=== PATIENT | female | born 1975 | race Caucasian/White ===

== ENCOUNTER 2019-07-13 08:01 | Day surgery (SDC) | payer MEDICAID ==
[~2019-07-13] VITALS: Ht 165.1 cm; Wt 94.3 kg
[2019-07-13 08:25] VITALS: BP 134/76
[2019-07-13] MEDS ORDERED: IBUP-2697 PO (08:38)
[2019-07-13] MEDS ORDERED: MULT-933 PO (08:38)
[2019-07-13] MEDS ORDERED: normal saline 1000ml 1,000 ML IV SCH (08:55)
[2019-07-13] MEDS ORDERED: heparin sodium, porcine/PF 100unit/ml 5ML syringe ICATH ONE (10:10)
[2019-07-13] MEDS ORDERED: LIDOcaine 1%/PF 5ML 10 MG/ML VIAL SQ ONE (10:10)
[2019-07-13] MEDS ORDERED: fentaNYL/PF 50MCG/1 ML 2ML syringe IV PRN (10:10)
[2019-07-13] MEDS ORDERED: midazolam 2 mg/2 ml injection IV PRN (10:10)
[2019-07-13] MEDS ORDERED: heparin sodium, porcine/PF 100unit/ml 5ML syringe ONE (10:17)
[2019-07-13] MEDS ORDERED: fentaNYL/PF 50MCG/1 ML 2ML syringe ONE (10:18)
[2019-07-13] MEDS ORDERED: midazolam 2 mg/2 ml injection ONE (10:18)
[2019-07-13] MEDS ORDERED: LIDOcaine 1%/PF 5ML 10 MG/ML VIAL ONE (10:18)
[2019-07-13 11:21] VITALS: BP 122/61
[2019-07-13 11:30] VITALS: BP 111/67
[2019-07-13 11:45] VITALS: BP 116/70
[2019-07-13 12:00] VITALS: BP 120/69
== END 2019-07-13 12:20 | disposition home or self-care (01) ==
LOC: SSTAY O 08:01
PROVIDERS: ATTEND Radiology Diagnostic Radiology
DX: C50.412 Malignant neoplasm of upper-outer quadrant of left female breast (principal); Z91.09 Other allergy status, other than to drugs and biological substances; Z79.899 Other long term (current) drug therapy; Z80.1 Family history of malignant neoplasm of trachea, bronchus and lung; Z80.3 Family history of malignant neoplasm of breast; Z80.0 Family history of malignant neoplasm of digestive organs
CPT/HCPCS: 36561; 76937; 77001; 99152; 99153; C1788; C1894; J1642; J2250; J3010; A6213; J7030

== ENCOUNTER 2020-01-18 06:59 | Day surgery (SDC) | payer MEDICAID ==
[~2020-01-18] VITALS: Ht 162.6 cm; Wt 104.1 kg
[~2020-01-18 06:59] MED LIST: IBUP-2697 PO; MULT-933 PO
[2020-01-18] MEDS ORDERED: normal saline 1000ml 1,000 ML IV PRN (07:30)
[2020-01-18] MEDS ORDERED: LIDOcaine 1%/PF 5ML 10 MG/ML VIAL ONE (08:31)
[2020-01-18 08:32] VITALS: BP 124/79
[2020-01-18] MEDS ORDERED: APIX5TAB3 PO (09:21)
[2020-01-18] MEDS ORDERED: ACET-812 PO (09:21)
[2020-01-18 09:29] VITALS: BP 117/70
== END 2020-01-18 09:40 | disposition home or self-care (01) ==
LOC: SSTAY O 06:59 → MED 3N 07:02 → SSTAY O 09:40
PROVIDERS: ATTEND Radiology Diagnostic Radiology
DX: C50.412 Malignant neoplasm of upper-outer quadrant of left female breast (principal); Z91.09 Other allergy status, other than to drugs and biological substances; Z79.899 Other long term (current) drug therapy; Z90.12 Acquired absence of left breast and nipple
CPT/HCPCS: 36590

== ENCOUNTER 2021-11-13 11:24 | Day surgery (SDC) | payer MEDICAID ==
[2021-11-06 14:26] LABS: BASOPHILS % (AUTO) 0.5 % (0-1); EOSINOPHILS % (AUTO) 0.7 % (0-6); LYMPHOCYTES # (AUTO) 1.4 X10'3 (1.1-4.8); LYMPHOCYTES % (AUTO) 27.9 % (21-51); MEAN CORPUSCULAR HEMOGLOBIN 28.6 PG (27.0-31.0); MEAN CORPUSCULAR HGB CONC 33.2 g/dL (33.0-36.5); MEAN CORPUSCULAR VOLUME 86.3 FL (78-98); MONOCYTES # (AUTO) 0.4 X10'3 (0-0.9); MONOCYTES % (AUTO) 7.7 % (2-12); NEUTROPHILS # (AUTO) 3.2 X10'3 (1.8-7.7); NEUTROPHILS % (AUTO) 63.2 % (42-75); PRE OP HEMATOCRIT 42.1 % (35.0-45.0); PRE OP PLATELET COUNT 261 X10'3 (140-440); RED BLOOD COUNT 4.88 X10'6 (4.20-5.60); RED CELL DISTRIBUTION WIDTH 13.7 % (11.5-14.5)
[2021-11-06 14:39] LABS: ALBUMIN/GLOBULIN RATIO 1.1 (1.1-1.5); ALKALINE PHOSPHATASE 68 IU/L (46-116); BLOOD UREA NITROGEN 9 MG/DL (7-18); BUN/CREATININE RATIO 11.8 (6.6-38.0); CALCIUM 8.9 MG/DL (8.5-10.1); CHLORIDE 107 MMOL/L (99-107); CREATININE 0.76 MG/DL (0.40-0.90); PRE OP ALT 28 U/L (30-65); PRE OP ANION GAP 3 (8-16); PRE OP AST 22 U/L (10-37); PRE OP BILIRUB, TOTAL 0.3 MG/DL (0.0-1.0); PRE OP GLUCOSE 92 MG/DL (70-104); PRE OP POTASSIUM 4.1 MMOL/L (3.4-5.1); PRE OP SODIUM 143 MMOL/L (135-145); TOTAL CARBON DIOXIDE 33.3 MMOL/L (24-32); TOTAL PROTEIN 7.7 G/DL (6.4-8.2); eGFR 82 ML/MIN
[2021-11-06 14:44] LABS: HCG SERUM QL NEGATIVE
[~2021-11-13] VITALS: Ht 165.1 cm; Wt 95.4 kg
[2021-11-13] VITALS (12 sets, daily range): BP systolic 115–148; BP diastolic 60–74
[~2021-11-13 11:24] MED LIST changes: +ASCO-407 PO; +CHOL400T8 PO; +CYAN250010 PO; -IBUP-2697 PO; +PREN1TAB75 PO; +TURM538C PO; +famotidine 20mg tablet PO ONE; +ringers solution, lacted 1,000 ML IV SCH
[2021-11-13] MEDS ORDERED: scopolamine 1mg/72 hr patch TD ONE (13:20)
[2021-11-13] MEDS ORDERED: BUPIVAcaine 0.5% inj/PF 30 ML ONE (14:00)
[2021-11-13] MEDS ORDERED: sevoflurane 250ml liquid IH ONE (14:28)
[2021-11-13] MEDS ORDERED: midazolam 1 mg/ML 2ml injection ONE (14:33)
[2021-11-13] MEDS ORDERED: fentaNYL/PF 50MCG/1 ML 2ML syringe ONE (14:34)
[2021-11-13] MEDS ORDERED: propofol inj 20 ML IV ONE (14:34)
[2021-11-13] MEDS ORDERED: BUPIVAcaine 0.5% inj/PF 30 ml vial IJ ONE (15:10)
[2021-11-13] MEDS ORDERED: dexamethasone sod phosphate 4mg/ml inj. ONE (15:33)
[2021-11-13] MEDS ORDERED: rocuronium 10mg/ml inj IV ONE (15:33)
[2021-11-13] MEDS ORDERED: sugammadex 200mg/2ml injection IV ONE (15:33)
[2021-11-13] MEDS ORDERED: traMADol 50MG tablet PO ONE (15:45)
--- NOTE | 2021-11-13 15:46 | NUR ---
Received from OR via [facility], accompanied by Anesthesiologist MOLLY and report given by Anesthesiolgist. PATIENT WITH 20G PIV IN RIGHT HAND RUNNING LR AT 100. DENIES PAIN. 3 LAP SITES TO ABDOMEN THAT ARE CDI. VSS. NAILA PAD IN PLACE. Addendum: 11/13/21 at 1557 by Wilder Grace RN, RN Amended: Links added.
[2021-11-13] MEDS ORDERED: ringers solution, lacted 1,000 ML IV SCH (15:50)
[2021-11-13] MEDS ORDERED: meperidine/PF 25mg/ml syringe IV PRN ×3 (15:50)
[2021-11-13] MEDS ORDERED: morphine 2 MG/ML inj. syringe IV PRN (15:50)
[2021-11-13] MEDS ORDERED: morphine 4 MG/ML inj SYRINge IV PRN (15:50)
--- NOTE | 2021-11-13 17:26 | NUR ---
ALL DC CRITERIA HAS BEEN MET FOR TRANSFER HOME. ALL INSTRUCTIONS GIVEN AND PATIENT UNDERSTOOD. VSS. 3 ABDOMINAL LAP SITES CDI. UNDERSTOOD ALL DC PAPERWORK. DRESSED WITH ASSISTANCE AND TAKEN OUT VIA WHEELCHAIR TO PERSONAL VEHICLE WHERE SPOUSE WENDY DROVE HER HOME. Addendum: 11/13/21 at 1753 by Wilder Grace RN, RN Amended: Links added.
== END 2021-11-13 17:26 | disposition home or self-care (01) ==
LOC: PAS 11:24
PROVIDERS: ATTEND Obstetrics & Gynecology
DX: Z30.2 Encounter for sterilization (principal); N92.0 Excessive and frequent menstruation with regular cycle; N84.0 Polyp of corpus uteri; F41.9 Anxiety disorder, unspecified; D68.51 Activated protein C resistance; E66.9 Obesity, unspecified; Z68.35 Body mass index [BMI] 35.0-35.9, adult; Z79.899 Other long term (current) drug therapy; Z90.12 Acquired absence of left breast and nipple; Z85.3 Personal history of malignant neoplasm of breast; Z88.5 Allergy status to narcotic agent; Z88.8 Allergy status to other drugs, medicaments and biological substances; Z91.09 Other allergy status, other than to drugs and biological substances; Z98.890 Other specified postprocedural states; Z80.3 Family history of malignant neoplasm of breast
CPT/HCPCS: 36415; 58563; 58670; 80053; 82948; 84703; 85025; 86885; 86900; 86901; 93005; J1100; J2250; J2704; J3010; J3490; J7030; J7120; S0020; Z7506; Z7508; Z7512; A4355; A4618; A4649; A6250